=== PATIENT | female | born 2000 | race American Indian/Alaskan Native ===

== ENCOUNTER 2021-11-11 03:47 | Emergency (ER) | payer BC ==
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
[2021-11-11 05:49] VITALS: BP 133/82
== END 2021-11-11 05:51 | disposition home or self-care (01) ==
LOC: ED 03:47
DX: S90.02XA Contusion of left ankle, initial encounter (principal); X58.XXXA Exposure to other specified factors, initial encounter; Y93.89 Activity, other specified; Y92.89 Other specified places as the place of occurrence of the external cause; Y99.8 Other external cause status
CPT/HCPCS: 99283